=== PATIENT | female | born 1935 | race Caucasian/White ===

== ENCOUNTER 2019-07-12 10:46 | Emergency (ER) | payer MEDICAID, MEDICARE ==
[2019-07-12] MEDS ORDERED: Lactated Ringers 1,000 ML IV ONE (11:19)
--- NOTE | 2019-07-12 11:23 | EDM.PDOC ---
ED HPI GENERAL MEDICAL PROBLEM - General Chief Complaint: Genitourinary Problem Stated Complaint: MEDICAL VIA [facility] Time Seen by Provider: 07/12/19 11:05 Source of Information: Reports: Patient, RN Notes Reviewed, Other History Limitations: Reports: Physical Impairment - History of Present Illness INITIAL COMMENTS - FREE TEXT/NARRATIVE: 83-year-old female presents emergency department today via EMS services, she is a [facility] a [facility] local was [facility] from the [facility] after review of blood work revealed her potassium is now 2.7 this is down from 4.0, 3 weeks ago creatinine now 2.2 which was 0.8, 3 weeks ago, she is significantly demented therefore majority this history was taken from chart review and [facility] records - Related Data Allergies Allergy/AdvReac Type Severity Reaction Status Date / Time adhesive Allergy Rash Verified 07/12/19 10:58 latex Allergy Rash Verified 07/12/19 10:58 zoster vaccine live Allergy Cannot Verified 07/12/19 10:58 Remember lithium AdvReac Nausea and Verified 07/12/19 15:13 Vomiting Home Meds: Home Meds Acetaminophen 650 mg PO Q6H PRN 07/12/19 [History] Benzonatate 200 mg PO TID PRN 07/12/19 [History] Calcium Carbonate 1,000 mg PO TID PRN 07/12/19 [History] Cholecalciferol (Vitamin D3) [Vitamin D3] 2,000 unit PO DAILY 07/12/19 [History] Furosemide [Lasix] 10 mg PO DAILY 07/12/19 [History] Levothyroxine [Synthroid] 88 mcg PO ACBREAKFAST 07/12/19 [History] Melatonin 3 mg PO BEDTIME 07/12/19 [History] Multivitamin [Multi-Vitamin Daily] 1 each PO DAILY 07/12/19 [History] Mycophenolate [Myfortic] 720 mg PO BID 07/12/19 [History] Nystatin [Mycostatin] 500,000 unit PO QID 07/12/19 [History] OLANZapine [Olanzapine] 2.5 mg PO BEDTIME 07/12/19 [History] Rosuvastatin [Crestor] 20 mg PO DAILY 07/12/19 [History] amLODIPine [Norvasc] 5 mg PO DAILY 07/12/19 [History] cycloSPORINE, Modified [Cyclosporine Modified] 75 mg PO BID 07/12/19 [History] glipiZIDE [Glipizide Xl] 20 mg PO DAILY 07/12/19 [History] predniSONE [Prednisone] 4 mg PO DAILY 07/12/19 [History] Past Medical History Cardiovascular History: Reports: High Cholesterol, Hypertension Genitourinary History: Reports: Other (See Below) Endocrine/Metabolic History: Reports: Diabetes, Type II Social & Family History - Tobacco Use Smoking Status *Q: Former Smoker Used Tobacco, but Quit: Yes Month/Year Tobacco Last Used: 50 years - Caffeine Use Caffeine Use: Reports: None - Recreational Drug Use Recreational Drug Use: No ED ROS GENERAL - Review of Systems Review Of Systems: Unable To Obtain Reason Not Obtained: Dementia ED EXAM, RENAL/ - Physical Exam Exam: See Below Exam Limited By: Physical Impairment General Appearance: Alert, No Apparent Distress Respiratory/Chest: No Respiratory Distress, Lungs Clear, Normal Breath Sounds, No Accessory Muscle Use, Chest Non-Tender Cardiovascular: Regular Rate, Rhythm, No Murmur GI/Abdominal: Soft, Non-Tender Back Exam: No: CVA Tenderness (R), CVA Tenderness (L) Course - Vital Signs Last Recorded V/S: Last Vital Signs Temp 99.7 F 07/12/19 10:49 Pulse 93 07/12/19 15:10 Resp 20 07/12/19 10:49 BP 138/57 L 07/12/19 15:10 Pulse Ox 92 L 07/12/19 15:10 - Orders/Labs/Meds Orders: Active Orders 24 hr Category Date Time Status CULTURE URINE [RM] Urgent Lab 07/12/19 12:27 Received Potassium Chloride [Klor-Con M20] Med 07/12/19 15:39 Once 40 meq PO ONETIME ONE Labs: Laboratory Tests 07/12/19 07/12/19 07/12/19 Range/Units 11:33 11:33 11:33 WBC 11.0 (4.5-11.0) K/uL RBC 4.49 (3.30-5.50) M/uL Hgb 13.7 (12.0-15.0) g/dL Hct 42.2 (36.0-48.0) % MCV 94 (80-98) fL MCH 31 (27-31) pg MCHC 33 (32-36) % Plt Count 241 (150-400) K/uL Neut % (Auto) 83 H (36-66) % Lymph % (Auto) 11 L (24-44) % [place] % (Auto) 6 (2-6) % Eos % (Auto) 1 L (2-4) % Baso % (Auto) 0 (0-1) % PT (9.5-12.0) sec INR (0.80-1.20) APTT (27.0-36.0) sec Sodium (140-148) mmol/L Potassium (3.6-5.2) mmol/L Chloride (100-108) mmol/L Carbon Dioxide (21-32) mmol/L Anion Gap (5.0-14.0) mmol/L BUN (7-18) mg/dL Creatinine (0.6-1.0) mg/dL Est Cr Clr Drug Dosing mL/min Estimated GFR (MDRD) (>60) Glucose (74-106) mg/dL Lactic Acid 1.8 (0.4-2.0) mmol/L Calcium (8.5-10.1) mg/dL Phosphorus 3.6 (2.5-4.9) mg/dL Magnesium 1.4 L (1.8-2.4) mg/dL Total Bilirubin (0.2-1.0) mg/dL AST (15-37) U/L ALT (12-78) U/L Alkaline Phosphatase (46-116) U/L Total Protein (6.4-8.2) g/dL Albumin (3.4-5.0) g/dL Globulin (2.3-3.5) g/dL Albumin/Globulin Ratio (1.2-2.2) Urine Color (YELLOW) Urine Appearance (CLEAR) Urine pH (5.0-8.0) Ur Specific [place] (1.008-1.030) Urine Protein (NEGATIVE) mg/dL Urine Glucose (UA) (NEGATIVE) mg/dL Urine Ketones (NEGATIVE) mg/dL Urine Occult Blood (NEGATIVE) Urine Nitrite (NEGATIVE) Urine Bilirubin (NEGATIVE) Urine Urobilinogen (0.2-1.0) EU/dL Ur Leukocyte Esterase (NEGATIVE) Urine RBC (0-5) Urine WBC (0-5) Ur Epithelial Cells Amorphous Sediment Urine Bacteria Urine Mucus Urine Other 07/12/19 07/12/19 07/12/19 Range/Units 11:34 11:43 11:43 WBC (4.5-11.0) K/uL RBC (3.30-5.50) M/uL Hgb (12.0-15.0) g/dL Hct (36.0-48.0) % MCV (80-98) fL MCH (27-31) pg MCHC (32-36) % Plt Count (150-400) K/uL Neut % (Auto) (36-66) % Lymph % (Auto) (24-44) % [place] % (Auto) (2-6) % Eos % (Auto) (2-4) % Baso % (Auto) (0-1) % PT 11.9 (9.5-12.0) sec INR 1.11 (0.80-1.20) APTT 23.6 L (27.0-36.0) sec Sodium 137 L (140-148) mmol/L Potassium 2.7 L* (3.6-5.2) mmol/L Chloride 98 L (100-108) mmol/L Carbon Dioxide 27 (21-32) mmol/L Anion Gap 14.7 H (5.0-14.0) mmol/L BUN 39 H (7-18) mg/dL Creatinine 2.3 H (0.6-1.0) mg/dL Est Cr Clr Drug Dosing 14.40 mL/min Estimated GFR (MDRD) 20 L (>60) Glucose 216 H (74-106) mg/dL Lactic Acid (0.4-2.0) mmol/L Calcium 9.2 (8.5-10.1) mg/dL Phosphorus (2.5-4.9) mg/dL Magnesium (1.8-2.4) mg/dL Total Bilirubin 0.8 (0.2-1.0) mg/dL AST 51 H (15-37) U/L ALT 71 (12-78) U/L Alkaline Phosphatase 88 (46-116) U/L Total Protein 6.8 (6.4-8.2) g/dL Albumin 3.1 L (3.4-5.0) g/dL Globulin 3.7 H (2.3-3.5) g/dL Albumin/Globulin Ratio 0.8 L (1.2-2.2) Urine Color (YELLOW) Urine Appearance (CLEAR) Urine pH (5.0-8.0) Ur Specific [place] (1.008-1.030) Urine Protein (NEGATIVE) mg/dL Urine Glucose (UA) (NEGATIVE) mg/dL Urine Ketones (NEGATIVE) mg/dL Urine Occult Blood (NEGATIVE) Urine Nitrite (NEGATIVE) Urine Bilirubin (NEGATIVE) Urine Urobilinogen (0.2-1.0) EU/dL Ur Leukocyte Esterase (NEGATIVE) Urine RBC (0-5) Urine WBC (0-5) Ur Epithelial Cells Amorphous Sediment Urine Bacteria Urine Mucus Urine Other 07/12/19 Range/Units 13:01 WBC (4.5-11.0) K/uL RBC (3.30-5.50) M/uL Hgb (12.0-15.0) g/dL Hct (36.0-48.0) % MCV (80-98) fL MCH (27-31) pg MCHC (32-36) % Plt Count (150-400) K/uL Neut % (Auto) (36-66) % Lymph % (Auto) (24-44) % [place] % (Auto) (2-6) % Eos % (Auto) (2-4) % Baso % (Auto) (0-1) % PT (9.5-12.0) sec INR (0.80-1.20) APTT (27.0-36.0) sec Sodium (140-148) mmol/L Potassium (3.6-5.2) mmol/L Chloride (100-108) mmol/L Carbon Dioxide (21-32) mmol/L Anion Gap (5.0-14.0) mmol/L BUN (7-18) mg/dL Creatinine (0.6-1.0) mg/dL Est Cr Clr Drug Dosing mL/min Estimated GFR (MDRD) (>60) Glucose (74-106) mg/dL Lactic Acid (0.4-2.0) mmol/L Calcium (8.5-10.1) mg/dL Phosphorus (2.5-4.9) mg/dL Magnesium (1.8-2.4) mg/dL Total Bilirubin (0.2-1.0) mg/dL AST (15-37) U/L ALT (12-78) U/L Alkaline Phosphatase (46-116) U/L Total Protein (6.4-8.2) g/dL Albumin (3.4-5.0) g/dL Globulin (2.3-3.5) g/dL Albumin/Globulin Ratio (1.2-2.2) Urine Color Yellow (YELLOW) Urine Appearance Cloudy A (CLEAR) Urine pH 5.0 (5.0-8.0) Ur Specific [place] 1.020 (1.008-1.030) Urine Protein 100 H (NEGATIVE) mg/dL Urine Glucose (UA) Negative (NEGATIVE) mg/dL Urine Ketones Negative (NEGATIVE) mg/dL Urine Occult Blood Moderate H (NEGATIVE) Urine Nitrite Negative (NEGATIVE) Urine Bilirubin Negative (NEGATIVE) Urine Urobilinogen 1.0 (0.2-1.0) EU/dL Ur Leukocyte Esterase Trace H (NEGATIVE) Urine RBC 5-10 H (0-5) Urine WBC 20-30 H (0-5) Ur Epithelial Cells Few Amorphous Sediment Moderate Urine Bacteria Few Urine Mucus Not seen Urine Other See note Meds: Medications Discontinued Medications Generic Name Dose Route Start Last Admin Trade Name Kristie PRN Reason Stop Dose Admin Lactated Ringer's 1,000 mls @ 999 mls/hr 07/12/19 11:19 07/12/19 12:28 Ringers, Lactated IV 07/12/19 12:19 999 mls/hr BOLUS ONE Administration Ceftriaxone Sodium 1 gm/ 50 mls @ 100 mls/hr 07/12/19 14:57 07/12/19 15:29 Sodium Chloride IV 07/12/19 15:26 100 mls/hr ONETIME ONE Administration - Re-Assessments/Exams Free Text/Narrative Re-Assessment/Exam: 07/12/19 15:00 Called and discussed the case with Dr. [place] executive assistant to general counsel at [facility] at 1455, no known explanation for her acute renal failure possibly related to urinary tract infection possibly related to long-term placement of catheter at this time treatment antibiotics followed by close follow-up of electrolytes and kidney function thus far she has been given 1 L fluid and 20 mEq potassium replacement 07/12/19 15:01 Departure - Departure Time of Disposition: 15:45 Disposition: DC/Tfer to [place] [id number] Condition: Poor Clinical Impression: UTI, Urinary tract infectious disease Acute renal failure Qualifiers: Acute renal failure type: unspecified Qualified Code(s): N17.9 - Acute kidney failure, unspecified - Discharge Information Referrals: Avery Lares MD [Primary Care Provider] - Forms: ED Department Discharge Additional Instructions: Recheck basic metabolic panel in the morning, may need further evaluation, antibiotics cefdinir 300 mg twice a day for 3 days start tomorrow Sepsis Event Note - Evaluation Sepsis Screening Result: No Definite Risk - Focused Exam Vital Signs: Vital Signs Temp Pulse Resp BP Pulse Ox 07/12/19 15:10 93 138/57 L 92 L 07/12/19 13:46 80 121/57 L 92 L 07/12/19 12:46 74 117/57 L 94 L 07/12/19 10:49 99.7 F 58 L 20 103/41 L 95 Date Exam was Performed: 07/12/19 Time Exam was Performed: 15:40 - My Orders Last 24 Hours: My Active Orders 07/12/19 12:27 CULTURE URINE [RM] Urgent 07/12/19 15:39 Potassium Chloride [Klor-Con M20] 40 meq PO ONETIME ONE - Assessment/Plan Last 24 Hours: My Active Orders 07/12/19 12:27 CULTURE URINE [RM] Urgent 07/12/19 15:39 Potassium Chloride [Klor-Con M20] 40 meq PO ONETIME ONE Plan: Assessment Acuity = acute Site and laterality = urinary tract infection with dehydration complicated the patient with known history of renal transplant on immunosuppressants producing an acute renal failure Etiology = unknown possibly urinary tract infection Manifestations = acute renal failure Location of injury = Home Lab values = CBC unremarkable potassium low at 2.7 consistent hypokalemia, creatinine elevated 2.3 consistent with acute renal failure stage G5, blood sugar elevated 216 consistent with hyperglycemia magnesium low at 1.4 consistent with hypomagnesemia albumin low at 3.1 consistent with hypoalbuminemia, urinalysis WBC 20-30 consistent with pyuria cultures pending Plan She is given 1 g Rocephin IV as well as replacement of 40 mEq potassium and 1 L fluids, she will be discharged home recheck a BMP in the morning for further monitoring antibiotics of cefdinir 300 mg p.o. twice daily x3 days This note was dictated using [employer] voice recognition software please call with any questions on syntax or grammar.
[2019-07-12] MEDS ORDERED: cefTRIAXone 1 GM in Sodium Chloride 0.9% 50 ML IV ONE (14:57)
[2019-07-12] MEDS ORDERED: Potassium Chloride 20 MEQ Tab.ER PO ONE (15:39)
== END 2019-07-12 16:16 ==
LOC: JP.ED 10:46
DX: N17.9 Acute kidney failure, unspecified (principal); N39.0 Urinary tract infection, site not specified; E86.0 Dehydration; Z91.040 Latex allergy status; Z91.09 Other allergy status, other than to drugs and biological substances; Z88.7 Allergy status to serum and vaccine; Z79.899 Other long term (current) drug therapy; Z87.891 Personal history of nicotine dependence; E11.9 Type 2 diabetes mellitus without complications; Z79.84 Long term (current) use of oral hypoglycemic drugs
CPT/HCPCS: 36415; 80053; 81001; 83605; 83735; 84100; 85025; 85610; 85730; 87086; 96361; 96365; 99285; A9270; J0696; J7050; J7120; 87088; 87186

== ENCOUNTER 2019-11-22 00:01 | Inpatient (IN) | payer MEDICARE ==
[2019-11-22] MEDS ORDERED: Acetaminophen Soln 650 MG/20.3 ML UD Cup PO ONE (00:05)
[2019-11-22] MEDS ORDERED: Sodium Chloride 0.9% 1,000 ML IV SCH ×3 (00:15→01:45)
--- NOTE | 2019-11-22 00:33 | EDM.PDOC ---
ED HPI GENERAL MEDICAL PROBLEM - General Chief Complaint: Fever Stated Complaint: MEDICAL VIA [facility] Time Seen by Provider: 11/22/19 00:29 Source of Information: Reports: Patient History Limitations: Reports: No Limitations - History of Present Illness INITIAL COMMENTS - FREE TEXT/NARRATIVE: t fell last nite and she had a temp this am. She had tylenol for the temp this am. She has been very shakey this pm. She was found to have a temp of 104 on arrival. Onset: Other (pt did fall last nite. ) Duration: Hour(s): Location: Reports: Generalized, Other (pt has generalized shaking. ) Associated Symptoms: Reports: Confusion, Fever/Chills, Weakness Headache Pain Score (Numeric/FACES): 0 - Related Data Allergies Allergy/AdvReac Type Severity Reaction Status Date / Time adhesive Allergy Rash Verified 11/22/19 00:25 latex Allergy Rash Verified 11/22/19 00:25 zoster vaccine live Allergy Cannot Verified 11/22/19 00:25 Remember lithium AdvReac Nausea and Verified 11/22/19 00:25 Vomiting Home Meds: Home Meds Acetaminophen 650 mg PO Q6H PRN 07/12/19 [History] Benzonatate 200 mg PO TID PRN 07/12/19 [History] Calcium Carbonate 1,000 mg PO TID PRN 07/12/19 [History] Cholecalciferol (Vitamin D3) [Vitamin D3] 2,000 unit PO DAILY 07/12/19 [History] Furosemide [Lasix] 10 mg PO DAILY 07/12/19 [History] Levothyroxine [Synthroid] 88 mcg PO ACBREAKFAST 07/12/19 [History] Multivitamin [Multi-Vitamin Daily] 1 each PO DAILY 07/12/19 [History] Mycophenolate [Myfortic] 720 mg PO BID 07/12/19 [History] OLANZapine [Olanzapine] 5 mg PO BEDTIME 07/12/19 [History] Rosuvastatin [Crestor] 20 mg PO DAILY 07/12/19 [History] cycloSPORINE, Modified [Cyclosporine Modified] 75 mg PO DAILY 07/12/19 [History] predniSONE [Prednisone] 4 mg PO DAILY 07/12/19 [History] Calcium Carbonate [Calcium] 2 tab PO DAILY 11/22/19 [History] Potassium Chloride [Klor-Con] 1 dose PO BID 11/22/19 [History] Propylene Glycol/PEG 400/Pf [Systane Ultra 0.4-0.3% Eye Drp] 1 drop EYEBOTH QID 11/22/19 [History] Saliva Substitute Combo No.9 [Biotene] 1 dose PO ASDIRECTED PRN 11/22/19 [ History] cycloSPORINE [Cyclosporine] 50 mg PO DAILY 11/22/19 [History] polyethylene glycoL 3350 [Miralax] 1 dose PO ASDIRECTED PRN 11/22/19 [History] Ciprofloxacin HCl 250 mg PO BID #9 tablet 11/24/19 [Rx] Past Medical History HEENT History: Reports: Cataract, Hard of Hearing Cardiovascular History: Reports: High Cholesterol, Hypertension Respiratory History: Reports: Other (See Below) Other Respiratory History: history of acute respiratory faliure Gastrointestinal History: Reports: Cholelithiasis, Diverticulosis, Other (See Below) Other Gastrointestinal History: abd hernia Genitourinary History: Reports: Other (See Below) [employer]ORS History: Reports: Neurological History: Reports: Alzheimers Disease Psychiatric History: Reports: Bipolar Endocrine/Metabolic History: Reports: Diabetes, Type II Oncologic (Cancer) History: Reports: Basal Cell Carcinoma, Squamous Cell Carcinoma Dermatologic History: Reports: Other (See Below) Other Dermatologic History: actinic keratosis. 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 bone graft right leg Oncologic Surgical History: Reports: Biopsy of Breast Dermatological Surgical History: Reports: Skin Biopsy Social & Family History - Caffeine Use Caffeine Use: Reports: None ED ROS GENERAL - Review of Systems Review Of Systems: See Below Constitutional: Reports: Fever, Chills, Malaise, Weakness, Diaphoresis HEENT: Reports: No Symptoms Respiratory: Reports: No Symptoms Cardiovascular: Reports: No Symptoms Endocrine: Reports: No Symptoms GI/Abdominal: Reports: No Symptoms : Reports: No Symptoms Musculoskeletal: Reports: No Symptoms Skin: Reports: No Symptoms Neurological: Reports: Confusion Psychiatric: Reports: Anxiety ED EXAM, GENERAL - Physical Exam Exam: See Below Free Text/Narrative:: pt arrived with shaking chills and a temp of 104. She had a fever this am. and had tylenol. Exam Limited By: No Limitations General Appearance: Alert, Anxious Ears: Normal TMs Nose: Normal Inspection Throat/Mouth: Other (mouth appears very dry. ) Head: Atraumatic Neck: Normal Inspection Respiratory/Chest: No Respiratory Distress Cardiovascular: Regular Rate, Rhythm, Tachycardia, Other ( temp was 104. ) GI/Abdominal: Soft, Non-Tender (Female) Exam: Deferred Rectal (Female) Exam: Deferred Back Exam: Normal Inspection Extremities: Other (pt fell last nite and landed on her rt side. She had a skin tear on the rt arm. She was mildly tender on the rt hip but the hip can be freely moved. ) Neurological: Alert, Confused, Other (pt does have a history of dementia. ) Psychiatric: Anxious Course - Vital Signs Last Recorded V/S: Last Vital Signs Temp 35.6 C L 11/24/19 07:00 Pulse 47 L 11/24/19 07:00 Resp 18 11/24/19 07:00 BP 137/57 L 11/24/19 07:00 Pulse Ox 95 11/24/19 09:00 - Orders/Labs/Meds Labs: Laboratory Tests 11/22/19 11/22/19 11/22/19 Range/Units 00:01 00:01 00:01 WBC 8.5 (4.5-11.0) K/uL RBC 4.05 (3.30-5.50) M/uL Hgb 12.6 D (12.0-15.0) g/dL Hct 41.1 (36.0-48.0) % MCV 102 H (80-98) fL MCH 31 (27-31) pg MCHC 31 L (32-36) % Plt Count 204 (150-400) K/uL Neut % (Auto) 75 H (36-66) % Lymph % (Auto) 15 L (24-44) % [place] % (Auto) 9 H (2-6) % Eos % (Auto) 1 L (2-4) % Baso % (Auto) 0 (0-1) % Sodium 138 L (140-148) mmol/L Potassium 4.7 (3.6-5.2) mmol/L Chloride 101 (100-108) mmol/L Carbon Dioxide 27 (21-32) mmol/L Anion Gap 14.7 H (5.0-14.0) mmol/L BUN 26 H (7-18) mg/dL Creatinine 1.3 H (0.6-1.0) mg/dL Est Cr Clr Drug Dosing 27.32 mL/min Estimated GFR (MDRD) 39 L (>60) Glucose 120 H (74-106) mg/dL Lactic Acid 2.2 H (0.4-2.0) mmol/L Calcium 9.2 (8.5-10.1) mg/dL Total Bilirubin 0.7 (0.2-1.0) mg/dL AST 15 (15-37) U/L ALT 17 D (12-78) U/L Alkaline Phosphatase 56 (46-116) U/L Total Protein 7.1 (6.4-8.2) g/dL Albumin 3.2 L (3.4-5.0) g/dL Globulin 3.9 H (2.3-3.5) g/dL Albumin/Globulin Ratio 0.8 L (1.2-2.2) Urine Color (YELLOW) Urine Appearance (CLEAR) Urine pH (5.0-8.0) Ur Specific [place] (1.008-1.030) Urine Protein (NEGATIVE) mg/dL Urine Glucose (UA) (NEGATIVE) mg/dL Urine Ketones (NEGATIVE) mg/dL Urine Occult Blood (NEGATIVE) Urine Nitrite (NEGATIVE) Urine Bilirubin (NEGATIVE) Urine Urobilinogen (0.2-1.0) EU/dL Ur Leukocyte Esterase (NEGATIVE) Urine RBC (0-5) Urine WBC (0-5) Ur Epithelial Cells Amorphous Sediment Urine Bacteria Urine Mucus 11/22/19 Range/Units 00:03 WBC (4.5-11.0) K/uL RBC (3.30-5.50) M/uL Hgb (12.0-15.0) g/dL Hct (36.0-48.0) % MCV (80-98) fL MCH (27-31) pg MCHC (32-36) % Plt Count (150-400) K/uL Neut % (Auto) (36-66) % Lymph % (Auto) (24-44) % [place] % (Auto) (2-6) % Eos % (Auto) (2-4) % Baso % (Auto) (0-1) % Sodium (140-148) mmol/L Potassium (3.6-5.2) mmol/L Chloride (100-108) mmol/L Carbon Dioxide (21-32) mmol/L Anion Gap (5.0-14.0) mmol/L BUN (7-18) mg/dL Creatinine (0.6-1.0) mg/dL Est Cr Clr Drug Dosing mL/min Estimated GFR (MDRD) (>60) Glucose (74-106) mg/dL Lactic Acid (0.4-2.0) mmol/L Calcium (8.5-10.1) mg/dL Total Bilirubin (0.2-1.0) mg/dL AST (15-37) U/L ALT (12-78) U/L Alkaline Phosphatase (46-116) U/L Total Protein (6.4-8.2) g/dL Albumin (3.4-5.0) g/dL Globulin (2.3-3.5) g/dL Albumin/Globulin Ratio (1.2-2.2) Urine Color Yellow (YELLOW) Urine Appearance Clear (CLEAR) Urine pH 6.0 (5.0-8.0) Ur Specific [place] 1.025 (1.008-1.030) Urine Protein Negative (NEGATIVE) mg/dL Urine Glucose (UA) Negative (NEGATIVE) mg/dL Urine Ketones Negative (NEGATIVE) mg/dL Urine Occult Blood Moderate H (NEGATIVE) Urine Nitrite Positive H (NEGATIVE) Urine Bilirubin Negative (NEGATIVE) Urine Urobilinogen 0.2 (0.2-1.0) EU/dL Ur Leukocyte Esterase Negative (NEGATIVE) Urine RBC 5-10 H (0-5) Urine WBC 0-5 (0-5) Ur Epithelial Cells Few Amorphous Sediment Not seen Urine Bacteria Moderate Urine Mucus Not seen Meds: Medications Discontinued Medications Generic Name Dose Route Start Last Admin Trade Name Freq PRN Reason Stop Dose Admin Acetaminophen 650 mg 11/22/19 00:05 11/22/19 00:17 Tylenol PO 11/22/19 00:06 650 mg ONETIME ONE Administration Acetaminophen 650 mg 11/22/19 01:42 11/24/19 05:19 Tylenol PO 650 mg Q4H PRN Administration Pain (Mild 1-3)/fever Ciprofloxacin 250 mg 11/24/19 09:00 11/24/19 10:01 Ciprofloxacin Hcl PO 250 mg BIDAC AKIL Administration Cyclosporine (Modified) 50 mg 11/22/19 09:00 11/22/19 08:17 Neoral PO 50 mg DAILY AKIL Administration Cyclosporine (Modified) 75 mg 11/23/19 09:00 11/24/19 08:41 Neoral PO 75 mg DAILY AKIL Administration Cyclosporine (Modified) 50 mg 11/22/19 21:00 11/23/19 20:17 Neoral PO 50 mg BEDTIME AKIL Administration Enoxaparin Sodium 40 mg 11/22/19 01:45 11/22/19 02:54 Lovenox SUBCUT 40 mg DAILY AKIL Administration Enoxaparin Sodium 40 mg 11/22/19 21:00 11/23/19 20:16 Lovenox SUBCUT 40 mg BEDTIME AKIL Administration Furosemide 20 mg 11/22/19 01:54 Lasix PO ONETIME PRN Edema Sodium Chloride 1,000 mls @ 999 mls/hr 11/22/19 00:15 11/22/19 00:17 Normal Saline IV 999 mls/hr ASDIRECTED AKIL Administration Ceftriaxone Sodium 1 gm/ 50 mls @ 100 mls/hr 11/22/19 01:16 11/22/19 01:23 Sodium Chloride IV 11/22/19 01:45 100 mls/hr ONETIME ONE Administration Sodium Chloride 1,000 mls @ 999 mls/hr 11/22/19 01:30 11/22/19 01:24 Normal Saline IV 999 mls/hr ASDIRECTED AKIL Administration Sodium Chloride 1,000 mls @ 999 mls/hr 11/22/19 01:45 11/22/19 02:59 Normal Saline IV 999 mls/hr ASDIRECTED AKIL Administration Promethazine HCl 6.25 mg/ 50.25 mls @ 200 mls/hr 11/22/19 01:42 Sodium Chloride IV Q6H PRN Nausea/Vomiting Ceftriaxone Sodium 1 gm/ 50 mls @ 100 mls/hr 11/23/19 01:00 11/24/19 01:29 Sodium Chloride IV 100 mls/hr Q24H AKIL Administration Lactobacillus Rhamnosus 1 cap 11/22/19 21:00 11/24/19 08:41 Culturelle PO 1 cap BID AKIL Administration Levothyroxine Sodium 88 mcg 11/22/19 07:30 11/24/19 07:44 Synthroid PO 88 mcg ACBREAKFAST AKIL Administration Magnesium Hydroxide 30 ml 11/22/19 12:40 11/23/19 09:50 Milk Of Magnesia PO 30 ml BID PRN Administration Constipation Melatonin 9 mg 11/22/19 21:00 11/23/19 20:16 Melatonin PO 9 mg BEDTIME AKIL Administration Methylprednisolone Sodium Succinate 40 mg 11/22/19 00:35 11/22/19 01:15 Solu-Medrol IVPUSH 11/22/19 00:36 40 mg ONETIME ONE Administration Mycophenolate Mofetil 500 mg 11/22/19 09:00 11/24/19 08:41 Cellcept PO 500 mg BID AKIL Administration Olanzapine 5 mg 11/22/19 01:56 11/23/19 20:17 Zyprexa PO 5 mg BEDTIME AKIL Administration Ondansetron HCl 4 mg 11/22/19 01:42 Zofran Odt PO Q6H PRN Nausea able to take PO Oxycodone HCl 5 mg 11/22/19 01:42 11/22/19 02:56 Oxycodone PO 5 mg Q4H PRN Administration Pain (moderate 4-6) Prednisone 5 mg 11/22/19 10:00 11/24/19 08:41 Prednisone PO 5 mg WITHBREAKFAST AKIL Administration Rosuvastatin Calcium 10 mg 11/22/19 07:00 11/24/19 08:41 Crestor PO 10 mg DAILY AKIL Administration - Re-Assessments/Exams Free Text/Narrative Re-Assessment/Exam: 11/22/19 01:21 pt had a temp of 104. She has a normal wbc. She has a mildly elevated lactic acid indicating probable early sepsis. She had a urine with a positive nitrite and alot of bacteria. pt was given tylenol for her temp. rocephen 1 gm was given iv. culture on the urine was obtained and she had blood cultures drawn. Departure - Departure Time of Disposition: 01:25 Disposition: Admitted As Inpatient 65 Condition: Fair Clinical Impression: Dehydration Sepsis Qualifiers: Sepsis type: Pseudomonas Sepsis acute organ dysfunction status: without acute organ dysfunction Qualified Code(s): A41.52 - Sepsis due to Pseudomonas UTI (urinary tract infection) Qualifiers: Urinary tract infection type: acute cystitis Hematuria presence: with hematuria Qualified Code(s): N30.01 - Acute cystitis with hematuria - Discharge Information Sepsis Event Note - Focused Exam Date Exam was Performed: 11/24/19 Time Exam was Performed: 18:12
[2019-11-22] MEDS ORDERED: methylPREDNISolone Sodium Succinate 40 MG/1 ML SDV IVPUSH ONE (00:35)
[2019-11-22] MEDS ORDERED: cefTRIAXone 1 GM in Sodium Chloride 0.9% 50 ML IV ONE (01:16)
[2019-11-22] MEDS ORDERED: oxyCODONE 5 MG Tab PO PRN (01:42)
[2019-11-22] MEDS ORDERED: Promethazine 6.25 MG in Sodium Chloride 0.9% 50 ML IV PRN (01:42)
[2019-11-22] MEDS ORDERED: Ondansetron 4 MG Tab.DIS PO PRN (01:42)
[2019-11-22] MEDS ORDERED: Enoxaparin 40 MG/0.4 ML Syringe SUBCUT SCH (01:45)
[2019-11-22] MEDS ORDERED: Furosemide 20 MG Tab PO PRN (01:54)
--- NOTE | 2019-11-22 02:16 | PCM.HP.2 ---
H&P History of Present Illness - General Date of Service: 11/22/19 Admit Problem/Dx: Admission Diagnosis/Problem Admission Diagnosis/Problem Sepsis Source of Information: EMS, Half-Way Records History Limitations: Reports: Altered Mental Status - History of Present Illness Initial Comments - Free Text/Narative: Patient is an 84yo female with PMH of renal transplant and Bipolar disorder with delirium who was brought by EMS from [facility] when found to be confused this evening. Upon arrival in the ER she had a temp of 104. She is having confusion in the ER as she is saying her arm is plastic and shouldn't be used for blood draws or BP because it's plastic. She also says she doesn't need to be admitted because she isn't and isn't going to deliver. Says she has a guardian named Aziza Kaur who needs to be notified but does not have a number. Patient tells nursing that if her feet touch the ground they will turn to apple sauce. Onset of Symptoms: Reports: Today Duration of Symptoms: Reports: Hour(s): - Related Data Allergies/Adverse Reactions: Allergies Allergy/AdvReac Type Severity Reaction Status Date / Time adhesive Allergy Rash Verified 11/22/19 00:25 latex Allergy Rash Verified 11/22/19 00:25 zoster vaccine live Allergy Cannot Verified 11/22/19 00:25 Remember lithium AdvReac Nausea and Verified 11/22/19 00:25 Vomiting Home Medications: Home Meds Acetaminophen 650 mg PO Q6H PRN 07/12/19 [History] Benzonatate 200 mg PO TID PRN 07/12/19 [History] Calcium Carbonate 1,000 mg PO TID PRN 07/12/19 [History] Cholecalciferol (Vitamin D3) [Vitamin D3] 2,000 unit PO DAILY 07/12/19 [History] Furosemide [Lasix] 10 mg PO DAILY 07/12/19 [History] Levothyroxine [Synthroid] 88 mcg PO ACBREAKFAST 07/12/19 [History] Multivitamin [Multi-Vitamin Daily] 1 each PO DAILY 07/12/19 [History] Mycophenolate [Myfortic] 720 mg PO BID 07/12/19 [History] OLANZapine [Olanzapine] 5 mg PO BEDTIME 07/12/19 [History] Rosuvastatin [Crestor] 20 mg PO DAILY 07/12/19 [History] cycloSPORINE, Modified [Cyclosporine Modified] 75 mg PO DAILY 07/12/19 [History] predniSONE [Prednisone] 4 mg PO DAILY 07/12/19 [History] Calcium Carbonate [Calcium] 2 tab PO DAILY 11/22/19 [History] Polyethylene Glycol 3350 [Miralax] 1 dose PO ASDIRECTED PRN 11/22/19 [History] Potassium Chloride [Klor-Con] 1 dose PO BID 11/22/19 [History] Propylene Glycol/PEG 400/Pf [Systane Ultra 0.4-0.3% Eye Drp] 1 drop EYEBOTH QID 11/22/19 [History] Saliva Substitute Combo No.9 [Biotene] 1 dose PO ASDIRECTED PRN 11/22/19 [ History] cycloSPORINE [Cyclosporine] 50 mg PO DAILY 11/22/19 [History] Past Medical History HEENT History: Reports: Cataract, Hard of Hearing Cardiovascular History: Reports: High Cholesterol, Hypertension Respiratory History: Reports: Other (See Below) Other Respiratory History: history of acute respiratory faliure Gastrointestinal History: Reports: Cholelithiasis, Diverticulosis, Other (See Below) Other Gastrointestinal History: abd hernia Genitourinary History: Reports: Other (See Below) MANAGER PHP History: Reports: Neurological History: Reports: Alzheimers Disease Psychiatric History: Reports: Bipolar Endocrine/Metabolic History: Reports: Diabetes, Type II Oncologic (Cancer) History: Reports: Basal Cell Carcinoma, Squamous Cell Carcinoma Dermatologic History: Reports: Other (See Below) Other Dermatologic History: actinic keratosis. 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 bone graft right leg Oncologic Surgical History: Reports: Biopsy of Breast Dermatological Surgical History: Reports: Skin Biopsy Social & Family History - Tobacco Use Smoking Status *Q: Never Smoker - Caffeine Use Caffeine Use: Reports: None - Recreational Drug Use Recreational Drug Use: No - Living Situation & Occupation Living situation: Reports: Extended Care Facility, Assisted Living H&P Review of Systems - Review of Systems: Review Of Systems: Unable To Obtain Reason Not Obtained: confusion Free Text/Narrative: endorses back pain Exam - Exam Exam: See Below - Vital Signs Vital Signs: Last Vital Signs Temp 39.3 C H 11/22/19 01:11 Pulse 90 11/22/19 01:37 Resp 26 H 11/22/19 01:37 BP 142/45 H 11/22/19 01:37 Pulse Ox 91 L 11/22/19 01:37 Weight: 60.781 kg - Exam General: Alert. No: Oriented HEENT: PERRLA, Hearing Intact, Mucosa Moist & [place], Nares Patent, Normal Nasal Septum, Posterior Pharynx Clear, Conjunctiva Clear, EOMI, EACs Clear, TMs Clear Neck: Supple, Trachea Midline, 2 Lungs: Clear to Auscultation, Normal Respiratory Effort Cardiovascular: Regular Rate, Regular Rhythm, Systolic Murmur GI/Abdominal Exam: Normal Bowel Sounds, Soft, Non-Tender, No Organomegaly, No Distention, No Abnormal Bruit, No Mass, Pelvis Stable (Female) Exam: Deferred Rectal (Female) Exam: Deferred Back Exam: Normal Inspection, Full Range of Motion, NT Extremities: Normal Inspection, Normal Range of Motion, Non-Tender, No Pedal Edema, Normal Capillary Refill Skin: Warm, Dry, Intact Neurological: Cranial Nerves Intact, Reflexes Equal Bilateral Neuro Extensive - Mental Status: Alert. No: Oriented x3, Normal Cognition Neuro Extensive - Motor, Sensory, Reflexes: CN II-XII Intact, Normal Gait, Normal Reflexes Psychiatric: Alert, Normal Affect, Normal Mood - Patient Data Lab Results Last 24 hrs: Laboratory Results - last 24 hr 11/22/19 11/22/19 11/22/19 Range/Units 00:01 00:01 00:01 WBC 8.5 (4.5-11.0) K/uL RBC 4.05 (3.30-5.50) M/uL Hgb 12.6 D (12.0-15.0) g/dL Hct 41.1 (36.0-48.0) % MCV 102 H (80-98) fL MCH 31 (27-31) pg MCHC 31 L (32-36) % Plt Count 204 (150-400) K/uL Neut % (Auto) 75 H (36-66) % Lymph % (Auto) 15 L (24-44) % [place] % (Auto) 9 H (2-6) % Eos % (Auto) 1 L (2-4) % Baso % (Auto) 0 (0-1) % Sodium 138 L (140-148) mmol/L Potassium 4.7 (3.6-5.2) mmol/L Chloride 101 (100-108) mmol/L Carbon Dioxide 27 (21-32) mmol/L Anion Gap 14.7 H (5.0-14.0) mmol/L BUN 26 H (7-18) mg/dL Creatinine 1.3 H (0.6-1.0) mg/dL Est Cr Clr Drug Dosing 27.32 mL/min Estimated GFR (MDRD) 39 L (>60) Glucose 120 H (74-106) mg/dL Lactic Acid 2.2 H (0.4-2.0) mmol/L Calcium 9.2 (8.5-10.1) mg/dL Total Bilirubin 0.7 (0.2-1.0) mg/dL AST 15 (15-37) U/L ALT 17 D (12-78) U/L Alkaline Phosphatase 56 (46-116) U/L Total Protein 7.1 (6.4-8.2) g/dL Albumin 3.2 L (3.4-5.0) g/dL Globulin 3.9 H (2.3-3.5) g/dL Albumin/Globulin Ratio 0.8 L (1.2-2.2) Urine Color (YELLOW) Urine Appearance (CLEAR) Urine pH (5.0-8.0) Ur Specific [place] (1.008-1.030) Urine Protein (NEGATIVE) mg/dL Urine Glucose (UA) (NEGATIVE) mg/dL Urine Ketones (NEGATIVE) mg/dL Urine Occult Blood (NEGATIVE) Urine Nitrite (NEGATIVE) Urine Bilirubin (NEGATIVE) Urine Urobilinogen (0.2-1.0) EU/dL Ur Leukocyte Esterase (NEGATIVE) Urine RBC (0-5) Urine WBC (0-5) Ur Epithelial Cells Amorphous Sediment Urine Bacteria Urine Mucus 11/22/19 Range/Units 00:03 WBC (4.5-11.0) K/uL RBC (3.30-5.50) M/uL Hgb (12.0-15.0) g/dL Hct (36.0-48.0) % MCV (80-98) fL MCH (27-31) pg MCHC (32-36) % Plt Count (150-400) K/uL Neut % (Auto) (36-66) % Lymph % (Auto) (24-44) % [place] % (Auto) (2-6) % Eos % (Auto) (2-4) % Baso % (Auto) (0-1) % Sodium (140-148) mmol/L Potassium (3.6-5.2) mmol/L Chloride (100-108) mmol/L Carbon Dioxide (21-32) mmol/L Anion Gap (5.0-14.0) mmol/L BUN (7-18) mg/dL Creatinine (0.6-1.0) mg/dL Est Cr Clr Drug Dosing mL/min Estimated GFR (MDRD) (>60) Glucose (74-106) mg/dL Lactic Acid (0.4-2.0) mmol/L Calcium (8.5-10.1) mg/dL Total Bilirubin (0.2-1.0) mg/dL AST (15-37) U/L ALT (12-78) U/L Alkaline Phosphatase (46-116) U/L Total Protein (6.4-8.2) g/dL Albumin (3.4-5.0) g/dL Globulin (2.3-3.5) g/dL Albumin/Globulin Ratio (1.2-2.2) Urine Color Yellow (YELLOW) Urine Appearance Clear (CLEAR) Urine pH 6.0 (5.0-8.0) Ur Specific [place] 1.025 (1.008-1.030) Urine Protein Negative (NEGATIVE) mg/dL Urine Glucose (UA) Negative (NEGATIVE) mg/dL Urine Ketones Negative (NEGATIVE) mg/dL Urine Occult Blood Moderate H (NEGATIVE) Urine Nitrite Positive H (NEGATIVE) Urine Bilirubin Negative (NEGATIVE) Urine Urobilinogen 0.2 (0.2-1.0) EU/dL Ur Leukocyte Esterase Negative (NEGATIVE) Urine RBC 5-10 H (0-5) Urine WBC 0-5 (0-5) Ur Epithelial Cells Few Amorphous Sediment Not seen Urine Bacteria Moderate Urine Mucus Not seen Result Diagrams: 11/22/19 00:01 11/22/19 00:01 Sepsis Event Note - Evaluation Sepsis Screening Result: No Definite Risk Current Stage of Sepsis: Sepsis Possible Source of Sepsis: Genitourinary - Focused Exam Sepsis Event Note Statement: Focused Sepsis Exam Completed Vital Signs: Vital Signs Temp Pulse Resp BP Pulse Ox 11/22/19 01:37 90 26 H 142/45 H 91 L 11/22/19 01:11 39.3 C H 11/22/19 00:59 40.0 C H 87 16 155/64 H 90 L 11/22/19 00:16 40.0 C H 87 16 155/64 H 90 L Heart Sounds: Murmur, Systolic (known murmur) Capillary Refill, Detail: Less than/Equal to (</=) 2 Seconds Skin Exam (Focused Sepsis): Normal Turgor Date Exam was Performed: 11/22/19 Time Exam was Performed: 02:26 - Problem List (1) Sepsis SNOMED Code(s): 34608702 ICD Code: A41.9 - SEPSIS, UNSPECIFIED ORGANISM Status: Acute Current Visit: Yes Onset Date: ~11/21/19 Problem Details: POA, Patient receiving fluids and rocephin in ER, sepsis protocol started, lovenox started, patient will be sent to ICU for closer monitoring. Qualifiers: Sepsis type: sepsis due to unspecified organism Sepsis acute organ dysfunction status: without acute organ dysfunction Qualified Code(s): A41.9 - Sepsis, unspecified organism (2) UTI (urinary tract infection) SNOMED Code(s): 91202115 ICD Code: N39.0 - URINARY TRACT INFECTION, SITE NOT SPECIFIED Status: Acute Current Visit: Yes Problem Details: POA, patient given rocephin and fluids in ER will send to ICU for close monitoring given patient's age and confusion from presumed spesis Qualifiers: Urinary tract infection type: acute cystitis Hematuria presence: with hematuria Qualified Code(s): N30.01 - Acute cystitis with hematuria (3) Kidney transplant recipient SNOMED Code(s): 518879640 ICD Code: Z94.0 - KIDNEY TRANSPLANT STATUS Status: Acute Current Visit: Yes Onset Date: Unknown Problem Details: Will hold prednisone due to sepsis and infection will order cyclosporin (4) Dehydration SNOMED Code(s): 72397916 ICD Code: E86.0 - DEHYDRATION Status: Acute Current Visit: Yes Problem Details: will continue aggressive fluid replacement d/t presumed sepsis from UTI Problem List Initiated/Reviewed/Updated: Yes Orders Last 24hrs: Active Orders 24 hr Category Date Time Status Patient Status Manage Transfer [TRANSFER] Routine ADT 11/22/19 02:00 Active Patient Status [ADT] Routine ADT 11/22/19 01:42 Active Antiembolic Devices [RC] .Routine Care 11/22/19 01:42 Active Oxygen Therapy [RC] PRN Care 11/22/19 01:42 Active VTE/DVT Education [RC] Per Unit Routine Care 11/22/19 01:42 Active Vital Signs [RC] Q4H Care 11/22/19 01:42 Active Chest 1V Frontal [CR] Stat Exams 11/22/19 00:04 Taken CBC WITH AUTO DIFF [HEME] Routine Lab 11/22/19 07:00 Ordered COMPREHENSIVE METABOLIC PN,CMP [CHEM] Routine Lab 11/22/19 07:00 Ordered CULTURE BLOOD [BC] Urgent Lab 11/22/19 00:30 Received CULTURE BLOOD [BC] Urgent Lab 11/22/19 00:35 Received CULTURE URINE [RM] Stat Lab 11/22/19 00:03 Received LACTATE SEPSIS W/ REFLEX [CHEM] Routine Lab 11/22/19 02:00 Ordered Acetaminophen [Tylenol] Med 11/22/19 01:42 Active 650 mg PO Q4H PRN Enoxaparin [Lovenox] Med 11/22/19 01:45 Active 40 mg SUBCUT DAILY Furosemide [Lasix] Med 11/22/19 01:54 Active 20 mg PO ONETIME PRN Levothyroxine [Synthroid] Med 11/22/19 07:30 Active 88 mcg PO ACBREAKFAST OLANZapine [ZyPREXA] Med 11/22/19 01:56 Active 5 mg PO BEDTIME Ondansetron [Zofran ODT] Med 11/22/19 01:42 Active 4 mg PO Q6H PRN Promethazine [Phenergan] 6.25 mg Med 11/22/19 01:42 Active Sodium Chloride 0.9% [Normal Saline] 50 ml IV Q6H Rosuvastatin [Crestor] Med 11/22/19 07:00 Active 10 mg PO DAILY Sodium Chloride 0.9% [Normal Saline] 1,000 ml Med 11/22/19 00:15 Active IV ASDIRECTED Sodium Chloride 0.9% [Normal Saline] 1,000 ml Med 11/22/19 01:30 Active IV ASDIRECTED Sodium Chloride 0.9% [Normal Saline] 1,000 ml Med 11/22/19 01:45 Active IV ASDIRECTED cycloSPORINE, Modified [Neoral] Med 11/22/19 09:00 Active 50 mg PO DAILY mycophenolate mofetiL [Cellcept] Med 11/22/19 09:00 Active 500 mg PO BID oxyCODONE Med 11/22/19 01:42 Active 5 mg PO Q4H PRN Blood Culture x2 Reflex Set [OM.PC] Urgent Oth 11/22/19 00:03 Ordered Foot Pump [OM.PC] Per Unit Routine Oth 11/22/19 01:45 Ordered Sequential Compression Device [OM.PC] Per Unit Routine Oth 11/22/19 01:45 Ordered Resuscitation Status Routine Resus Stat 11/22/19 01:42 Ordered Medication Orders Acetaminophen (Tylenol) 650 mg PO Q4H PRN PRN Reason: Pain (Mild 1-3)/fever Cyclosporine (Modified) (Neoral) 50 mg PO DAILY [facility] Enoxaparin Sodium (Lovenox) 40 mg SUBCUT DAILY [facility] Furosemide (Lasix) 20 mg PO ONETIME PRN PRN Reason: Edema Sodium Chloride (Normal Saline) 1,000 mls @ 999 mls/hr IV ASDIRECTED AKIL Last Admin: 11/22/19 00:17 Dose: 999 mls/hr Sodium Chloride (Normal Saline) 1,000 mls @ 999 mls/hr IV ASDIRECTED AKIL Last Admin: 11/22/19 01:24 Dose: 999 mls/hr Sodium Chloride (Normal Saline) 1,000 mls @ 999 mls/hr IV ASDIRECTED [facility] Promethazine HCl 6.25 mg/ (Sodium Chloride) 50.25 mls @ 200 mls/hr IV Q6H PRN PRN Reason: Nausea/Vomiting Levothyroxine Sodium (Synthroid) 88 mcg PO ACBREAKFAST [facility] Mycophenolate Mofetil (Cellcept) 500 mg PO BID AKIL Olanzapine (Zyprexa) 5 mg PO BEDTIME AK[facility] Ondansetron HCl (Zofran Odt) 4 mg PO Q6H PRN PRN Reason: Nausea able to take PO Oxycodone HCl (Oxycodone) 5 mg PO Q4H PRN PRN Reason: Pain (moderate 4-6) Rosuvastatin Calcium (Crestor) 10 mg PO DAILY AKIL - Mortality Measure Prognosis:: Good
[2019-11-22] MEDS: OLANZapine 5 MG Tab PO SCH ×2 (02:55→20:46)
[2019-11-22] MEDS: Mycophenolate Mofetil 250 MG Cap PO SCH ×2 (08:18→20:45)
[2019-11-22] MEDS: Rosuvastatin 10 MG Tab PO SCH ×2 (08:18→11:29)
[2019-11-22] MEDS: Levothyroxine 88 MCG Tab PO SCH (08:18)
[2019-11-22] MEDS: Acetaminophen 325 MG Tab PO PRN (09:38)
--- NOTE | 2019-11-22 10:03 | CR ---
CHEST: Portable11/22/2019 at 12:47 AM CLINICAL HISTORY:Fever COMPARISON:None FINDINGS: Heart is enlarged. Pulmonary vascularity is exaggerated by 0.4 level. No definite infiltrates are seen. There are atherosclerotic changes in the aorta. IMPRESSION: Myocardial megaly Less than optimal inspiration exaggerates lung markings. No definite infiltrate seen. If clinically relevant, upright two-view chest should be considered when patient's condition allows
[2019-11-22] MEDS: predniSONE 5 MG Tab PO SCH (12:20)
[2019-11-22] MEDS ORDERED: Magnesium Hydroxide 400 MG/5 ML Susp 30 ML Cup PO PRN (12:40)
[2019-11-22] MEDS: Enoxaparin 40 MG/0.4 ML Syringe SUBCUT SCH (20:45)
[2019-11-22] MEDS: Lactobacillus Rhamnosus GG (Probiotic) Cap PO SCH (20:45)
[2019-11-22] MEDS: Melatonin 3 MG Tab PO SCH (20:45)
[2019-11-22] MEDS ORDERED: Enoxaparin 30 MG/0.3 ML Syringe SUBCUT SCH (21:00)
[2019-11-23] MEDS: cefTRIAXone 1 GM in Sodium Chloride 0.9% 50 ML IV SCH (01:06)
[2019-11-23] MEDS: predniSONE 5 MG Tab PO SCH (07:12)
[2019-11-23] MEDS: Levothyroxine 88 MCG Tab PO SCH (07:12)
[2019-11-23] MEDS: Rosuvastatin 10 MG Tab PO SCH (09:50)
[2019-11-23] MEDS: Lactobacillus Rhamnosus GG (Probiotic) Cap PO SCH ×2 (09:50→20:16)
[2019-11-23] MEDS: Mycophenolate Mofetil 250 MG Cap PO SCH ×2 (09:50→20:16)
--- NOTE | 2019-11-23 10:59 | PCM.PN ---
- General Info Date of Service: 11/23/19 Subjective Update: There were no acute events overnight. She has not had any fevers. Vital signs have been stable. No significant agitation. She does not complain of shortness of breath, abdominal pain or nausea. She feels a little tired. Urine culture growing a gram-negative fay with identification pending. Functional Status: Reports: Pain Controlled, Tolerating Diet - Review of Systems General: Denies: Fever - Patient Data Vitals - Most Recent: Last Vital Signs Temp 35.6 C L 11/23/19 10:27 Pulse 51 L 11/23/19 10:27 Resp 16 11/23/19 10:27 BP 118/54 L 11/23/19 10:27 Pulse Ox 96 11/23/19 10:27 Weight - Most Recent: 60.781 kg I&O - Last 24 Hours: Intake & Output 11/22/19 11/23/19 11/23/19 22:59 06:59 14:59 Intake Total 988 520 Balance 988 520 Lab Results Last 24 Hours: Laboratory Results - last 24 hr 11/23/19 11/23/19 Range/Units 05:42 05:42 WBC 8.1 (4.5-11.0) K/uL RBC 3.26 L (3.30-5.50) M/uL Hgb 9.9 L (12.0-15.0) g/dL Hct 33.4 L (36.0-48.0) % MCV 103 H (80-98) fL MCH 30 (27-31) pg MCHC 30 L (32-36) % Plt Count 171 (150-400) K/uL Sodium 140 (140-148) mmol/L Potassium 4.0 (3.6-5.2) mmol/L Chloride 107 (100-108) mmol/L Carbon Dioxide 24 (21-32) mmol/L Anion Gap 9.2 (5.0-14.0) mmol/L BUN 28 H (7-18) mg/dL Creatinine 1.0 (0.6-1.0) mg/dL Est Cr Clr Drug Dosing 35.52 mL/min Estimated GFR (MDRD) 53 L (>60) Glucose 201 H (74-106) mg/dL Calcium 8.1 L (8.5-10.1) mg/dL Josef Results Last 24 Hours: Microbiology 11/22/19 00:03 Urine Culture - Preliminary Urine, Bladder 11/22/19 00:35 Aerobic Blood Culture - Preliminary Blood - Venous - Iv Start Anaerobic Blood Culture - Preliminary NO GROWTH AFTER 1 DAY 11/22/19 00:30 Aerobic Blood Culture - Preliminary Blood - Arm, Left NO GROWTH AFTER 1 DAY Anaerobic Blood Culture - Preliminary NO GROWTH AFTER 1 DAY Med Orders - Current: Current Medications Acetaminophen (Tylenol) 650 mg PO Q4H PRN PRN Reason: Pain (Mild 1-3)/fever Last Admin: 11/22/19 09:38 Dose: 650 mg Cyclosporine (Modified) (Neoral) 75 mg PO DAILY [facility] Last Admin: 11/23/19 09:50 Dose: 75 mg Cyclosporine (Modified) (Neoral) 50 mg PO BEDTIME [facility] Last Admin: 11/22/19 20:45 Dose: 50 mg Enoxaparin Sodium (Lovenox) 40 mg SUBCUT BEDTIME [facility] Last Admin: 11/22/19 20:45 Dose: 40 mg Furosemide (Lasix) 20 mg PO ONETIME PRN PRN Reason: Edema Promethazine HCl 6.25 mg/ (Sodium Chloride) 50.25 mls @ 200 mls/hr IV Q6H PRN PRN Reason: Nausea/Vomiting Ceftriaxone Sodium 1 gm/ (Sodium Chloride) 50 mls @ 100 mls/hr IV Q24H [facility] Last Admin: 11/23/19 01:06 Dose: 100 mls/hr Lactobacillus Rhamnosus (Culturelle) 1 cap PO BID [facility] Last Admin: 11/23/19 09:50 Dose: 1 cap Levothyroxine Sodium (Synthroid) 88 mcg PO ACBREAKFAST [facility] Last Admin: 11/23/19 07:12 Dose: 88 mcg Magnesium Hydroxide (Milk Of Magnesia) 30 ml PO BID PRN PRN Reason: Constipation Last Admin: 11/23/19 09:50 Dose: 30 ml Melatonin (Melatonin) 9 mg PO BEDTIME [facility] Last Admin: 11/22/19 20:45 Dose: 9 mg Mycophenolate Mofetil (Cellcept) 500 mg PO BID [facility] Last Admin: 11/23/19 09:50 Dose: 500 mg Olanzapine (Zyprexa) 5 mg PO BEDTIME [facility] Last Admin: 11/22/19 20:46 Dose: 5 mg Ondansetron HCl (Zofran Odt) 4 mg PO Q6H PRN PRN Reason: Nausea able to take PO Oxycodone HCl (Oxycodone) 5 mg PO Q4H PRN PRN Reason: Pain (moderate 4-6) Last Admin: 11/22/19 02:56 Dose: 5 mg Prednisone (Prednisone) 5 mg PO WITHBREAKFAST [facility] Last Admin: 11/23/19 07:12 Dose: 5 mg Rosuvastatin Calcium (Crestor) 10 mg PO DAILY [facility] Last Admin: 11/23/19 09:50 Dose: 10 mg Discontinued Medications Acetaminophen (Tylenol) 650 mg PO ONETIME ONE Stop: 11/22/19 00:06 Last Admin: 11/22/19 00:17 Dose: 650 mg Cyclosporine (Modified) (Neoral) 50 mg PO DAILY [facility] Last Admin: 11/22/19 08:17 Dose: 50 mg Enoxaparin Sodium (Lovenox) 40 mg SUBCUT DAILY [facility] Last Admin: 11/22/19 02:54 Dose: 40 mg Sodium Chloride (Normal Saline) 1,000 mls @ 999 mls/hr IV ASDIRECTED [facility] Last Admin: 11/22/19 00:17 Dose: 999 mls/hr Ceftriaxone Sodium 1 gm/ (Sodium Chloride) 50 mls @ 100 mls/hr IV ONETIME ONE Stop: 11/22/19 01:45 Last Admin: 11/22/19 01:23 Dose: 100 mls/hr Sodium Chloride (Normal Saline) 1,000 mls @ 999 mls/hr IV ASDIRECTED [facility] Last Admin: 11/22/19 01:24 Dose: 999 mls/hr Sodium Chloride (Normal Saline) 1,000 mls @ 999 mls/hr IV ASDIRECTED [facility] Last Admin: 11/22/19 02:59 Dose: 999 mls/hr Methylprednisolone Sodium Succinate (Solu-Medrol) 40 mg IVPUSH ONETIME ONE Stop: 11/22/19 00:36 Last Admin: 11/22/19 01:15 Dose: 40 mg - Exam Quality Assessment: Supplemental Oxygen General: Alert, Oriented, Cooperative, No Acute Distress Lungs: Normal Respiratory Effort, Decreased Breath Sounds (mild left lung base) Cardiovascular: Regular Rate, Regular Rhythm GI/Abdominal Exam: Soft, No Distention Extremities: No Pedal Edema Psy/Mental Status: Alert, Normal Affect Sepsis Event Note - Evaluation Sepsis Screening Result: No Definite Risk - Focused Exam Vital Signs: Vital Signs Temp Pulse Resp BP Pulse Ox 11/23/19 10:27 35.6 C L 51 L 16 118/54 L 96 11/23/19 07:00 35.8 C L 58 L 15 129/53 L 97 11/23/19 03:10 90 L 11/23/19 03:00 34.7 C L 49 L 16 119/50 L 98 11/22/19 23:00 35.3 C L 51 L 14 132/56 L 98 Date Exam was Performed: 11/23/19 Time Exam was Performed: 13:31 - Problem List Review Problem List Initiated/Reviewed/Updated: Yes - My Orders Last 24 Hours: My Active Orders 11/22/19 10:00 predniSONE 5 mg PO WITHBREAKFAST 11/22/19 12:40 Transfer Patient (Change bed) [ADT] Routine Magnesium Hydroxide [Milk of Magnesia] 30 ml PO BID PRN 11/22/19 21:00 Lactobacillus Rhamnosus GG [Culturelle] 1 cap PO BID Melatonin 9 mg PO BEDTIME cycloSPORINE, Modified [Neoral] 50 mg PO BEDTIME 11/23/19 01:00 cefTRIAXone [Rocephin] 1 gm Sodium Chloride 0.9% [Normal Saline] 50 ml IV Q24H 11/23/19 09:00 cycloSPORINE, Modified [Neoral] 75 mg PO DAILY - Plan Plan:: ASSESSMENT AND PLAN - Acute cystitis without hematuria with sepsis-sepsis has resolved. Clinically doing well. Urine culture still pending but is growing a gram-negative fay. -Continue ceftriaxone -Follow-up culture Status post renal transplant-kidney function stable and doing well. -Continue home medications Alzheimer's disease-no behavior issues. -Melatonin at bedtime Maintenance issues - - DVT prophylaxis -mechanical - GI prophylaxis -not indicated - Nutrition -regular Disposition -I would anticipate discharge back to her assisted facility in 1 or maybe 2 days Khoa Powell M.D.
[2019-11-23] MEDS: Acetaminophen 325 MG Tab PO PRN (17:24)
[2019-11-23] MEDS: Enoxaparin 40 MG/0.4 ML Syringe SUBCUT SCH (20:16)
[2019-11-23] MEDS: Melatonin 3 MG Tab PO SCH (20:16)
[2019-11-23] MEDS: OLANZapine 5 MG Tab PO SCH (20:17)
[2019-11-24] MEDS: cefTRIAXone 1 GM in Sodium Chloride 0.9% 50 ML IV SCH (01:29)
[2019-11-24] MEDS: Acetaminophen 325 MG Tab PO PRN (05:19)
[2019-11-24] MEDS: Levothyroxine 88 MCG Tab PO SCH (07:44)
[2019-11-24] MEDS: predniSONE 5 MG Tab PO SCH (08:41)
[2019-11-24] MEDS: Rosuvastatin 10 MG Tab PO SCH (08:41)
[2019-11-24] MEDS: Mycophenolate Mofetil 250 MG Cap PO SCH (08:41)
[2019-11-24] MEDS: Lactobacillus Rhamnosus GG (Probiotic) Cap PO SCH (08:41)
[2019-11-24] MEDS ORDERED: Ciprofloxacin 500 MG Tab PO SCH (09:00)
--- NOTE | 2019-11-24 09:28 | PCM.DCSUM1 ---
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 She was admitted for management of a urinary tract infection with sepsis. Diagnosis: Stroke: No - Discharge Data Discharge Date: 11/24/19 Discharge Disposition: DC/Tfer to SNF 03 Condition: Good - Referral to Home Health Primary Care Physician: PCP None - Discharge Diagnosis/Problem(s) (1) Acute cystitis without hematuria SNOMED Code(s): 28249033 ICD Code: N30.00 - ACUTE CYSTITIS WITHOUT HEMATURIA Status: Acute Current Visit: Yes (2) Sepsis SNOMED Code(s): 77881897 ICD Code: A41.9 - SEPSIS, UNSPECIFIED ORGANISM Status: Acute Current Visit: Yes Onset Date: ~11/21/19 Problem Details: POA, Patient receiving fluids and rocephin in ER, sepsis protocol started, lovenox started, patient will be sent to ICU for closer monitoring. Qualifiers: Sepsis type: Pseudomonas Sepsis acute organ dysfunction status: without acute organ dysfunction Qualified Code(s): A41.52 - Sepsis due to Pseudomonas (3) Hx of kidney transplant Status: Chronic Current Visit: No (4) Alzheimers disease SNOMED Code(s): 66504960 ICD Code: G30.9 - ALZHEIMER'S DISEASE, UNSPECIFIED; F02.80 - DEMENTIA IN OTH DISEASES CLASSD ELSWHR W/O BEHAVRL DISTURB Status: Chronic Current Visit: No Qualifiers: Alzheimer's disease onset: late-onset Dementia behavioral disturbance: without behavioral disturbance Qualified Code(s): G30.1 - Alzheimer's disease with late onset; F02.80 - Dementia in other diseases classified elsewhere without behavioral disturbance (5) CKD (chronic kidney disease), stage III SNOMED Code(s): 302848388 ICD Code: N18.3 - CHRONIC KIDNEY DISEASE, STAGE 3 (MODERATE) Status: Chronic Current Visit: Yes - Patient Summary/Data Hospital Course: Shanon presented to the emergency room with fever and confusion. Work-up in the emergency room was concerning for a urinary tract infection with sepsis. She was borderline tachycardic, very confused and had a mildly elevated lactic acid level. She received ceftriaxone and IV fluids. Urine and blood cultures were obtained. She was admitted to the intensive care unit for further management. By the morning after admission her sepsis had resolved. Her heart rate and blood pressure were both normal and stable. Her delirium seem to have resolved by the morning after admission. We were able to convert her IV to a saline lock. We did continue the ceftriaxone. Throughout the next day there were no acute issues and she was feeling better. Strength is been improving. There is been no confusion. There is been no fevers. On the morning of planned discharge the urine culture returned with Pseudomonas. Antibiotics were transitioned to oral ciprofloxacin at this point. She has been afebrile. She has had a bowel movement. She has not had any fevers or confusion. I believe she is safe for discharge back to the [facility] at this point. My plan is for 5 days total of antibiotics with the Pseudomonas discovered of the urine culture. No other medication changes were made. - Patient Instructions Diet: Regular Diet as Tolerated Activity: As Tolerated Showering/Bathing: May Shower Notify Provider of: Fever, Increased Pain Other/Special Instructions: 1. You were in the hospital for management of a urinary tract infection caused by a bacteria called Pseudomonas. Your condition is improving with antibiotic therapy. I do recommend ongoing antibiotic therapy. Please take ciprofloxacin 250 mg twice daily for 9 more doses. Your first dose outside of the hospital will be due tonight. 2. Continue your usual home medications as previously prescribed. 3. Continue usual therapies at the [facility]. 4. Resume previously scheduled routine labs. - Discharge Plan *PRESCRIPTION DRUG MONITORING PROGRAM REVIEWED*: Not Applicable *COPY OF PRESCRIPTION DRUG MONITORING REPORT IN PATIENT SETH: Not Applicable Prescriptions/Med Rec: Ciprofloxacin HCl 250 mg PO BID #9 tablet Home Medications: Home Meds Acetaminophen 650 mg PO Q6H PRN 07/12/19 [History] Benzonatate 200 mg PO TID PRN 07/12/19 [History] Calcium Carbonate 1,000 mg PO TID PRN 07/12/19 [History] Cholecalciferol (Vitamin D3) [Vitamin D3] 2,000 unit PO DAILY 07/12/19 [History] Furosemide [Lasix] 10 mg PO DAILY 07/12/19 [History] Levothyroxine [Synthroid] 88 mcg PO ACBREAKFAST 07/12/19 [History] Multivitamin [Multi-Vitamin Daily] 1 each PO DAILY 07/12/19 [History] Mycophenolate [Myfortic] 720 mg PO BID 07/12/19 [History] OLANZapine [Olanzapine] 5 mg PO BEDTIME 07/12/19 [History] Rosuvastatin [Crestor] 20 mg PO DAILY 07/12/19 [History] cycloSPORINE, Modified [Cyclosporine Modified] 75 mg PO DAILY 07/12/19 [History] predniSONE [Prednisone] 4 mg PO DAILY 07/12/19 [History] Calcium Carbonate [Calcium] 2 tab PO DAILY 11/22/19 [History] Potassium Chloride [Klor-Con] 1 dose PO BID 11/22/19 [History] Propylene Glycol/PEG 400/Pf [Systane Ultra 0.4-0.3% Eye Drp] 1 drop EYEBOTH QID 11/22/19 [History] Saliva Substitute Combo No.9 [Biotene] 1 dose PO ASDIRECTED PRN 11/22/19 [ History] cycloSPORINE [Cyclosporine] 50 mg PO DAILY 11/22/19 [History] polyethylene glycoL 3350 [Miralax] 1 dose PO ASDIRECTED PRN 11/22/19 [History] Ciprofloxacin HCl 250 mg PO BID #9 tablet 11/24/19 [Rx] Oxygen Therapy Mode: Room Air Patient Handouts: Urinary Tract Infection, Adult, [id number], Ciprofloxacin tablets Referrals: Avrey Lares MD [Physician] - (Follow-up as needed after the hospital stay ) - Discharge Summary/Plan Comment DC Time >30 min.: No - Patient Data Vitals - Most Recent: Last Vital Signs Temp 35.6 C L 11/24/19 07:00 Pulse 47 L 11/24/19 07:00 Resp 18 11/24/19 07:00 BP 137/57 L 11/24/19 07:00 Pulse Ox 94 L 11/24/19 07:00 Weight - Most Recent: 60.781 kg I&O - Last 24 hours: Intake & Output 11/23/19 11/24/19 11/24/19 22:59 06:59 14:59 Intake Total 650 50 Balance 650 50 ZURDO Results - Last 24 hrs: Microbiology 11/22/19 00:03 Urine Culture - Final Urine, Bladder Pseudomonas Aeruginosa 11/22/19 00:30 Aerobic Blood Culture - Preliminary Blood - Arm, Left NO GROWTH AFTER 2 DAYS Anaerobic Blood Culture - Preliminary NO GROWTH AFTER 2 DAYS 11/22/19 00:35 Aerobic Blood Culture - Preliminary Blood - Venous - Iv Start Anaerobic Blood Culture - Preliminary NO GROWTH AFTER 2 DAYS Med Orders - Current: Current Medications Acetaminophen (Tylenol) 650 mg PO Q4H PRN PRN Reason: Pain (Mild 1-3)/fever Last Admin: 11/24/19 05:19 Dose: 650 mg Ciprofloxacin (Ciprofloxacin Hcl) [address] [facility] Cyclosporine (Modified) (Neoral) [address] [facility] Last Admin: 11/24/19 08:41 Dose: 75 mg Cyclosporine (Modified) (Neoral) [address] [facility] Last Admin: 11/23/19 20:17 Dose: 50 mg Enoxaparin Sodium (Lovenox) [address] [facility] Last Admin: 11/23/19 20:16 Dose: 40 mg Furosemide (Lasix) 20 mg PO ONETIME PRN PRN Reason: Edema Promethazine HCl 6.25 mg/ (Sodium Chloride) 50.25 mls @ 200 mls/hr IV Q6H PRN PRN Reason: Nausea/Vomiting Lactobacillus Rhamnosus (Culturelle) [address] [facility] Last Admin: 11/24/19 08:41 Dose: 1 cap Levothyroxine Sodium (Synthroid) [address] [facility] Last Admin: 11/24/19 07:44 Dose: 88 mcg Magnesium Hydroxide (Milk Of Magnesia) 30 ml PO BID PRN PRN Reason: Constipation Last Admin: 11/23/19 09:50 Dose: 30 ml Melatonin (Melatonin) [address] [facility] Last Admin: 11/23/19 20:16 Dose: 9 mg Mycophenolate Mofetil (Cellcept) [address] [facility] Last Admin: 11/24/19 08:41 Dose: 500 mg Olanzapine (Zyprexa) [address] [facility] Last Admin: 11/23/19 20:17 Dose: 5 mg Ondansetron HCl (Zofran Odt) 4 mg PO Q6H PRN PRN Reason: Nausea able to take PO Oxycodone HCl (Oxycodone) 5 mg PO Q4H PRN PRN Reason: Pain (moderate 4-6) Last Admin: 11/22/19 02:56 Dose: 5 mg Prednisone (Prednisone) [address] [facility] Last Admin: 11/24/19 08:41 Dose: 5 mg Rosuvastatin Calcium (Crestor) [address] [facility] Last Admin: 11/24/19 08:41 Dose: 10 mg Discontinued Medications Acetaminophen (Tylenol) 650 mg PO ONETIME ONE Stop: 11/22/19 00:06 Last Admin: 11/22/19 00:17 Dose: 650 mg Cyclosporine (Modified) (Neoral) [address] [facility] Last Admin: 11/22/19 08:17 Dose: 50 mg Enoxaparin Sodium (Lovenox) [address] [facility] Last Admin: 11/22/19 02:54 Dose: 40 mg Sodium Chloride (Normal Saline) 1,000 mls @ 999 mls/hr IV ASDIRECTED [facility] Last Admin: 11/22/19 00:17 Dose: 999 mls/hr Ceftriaxone Sodium 1 gm/ (Sodium Chloride) 50 mls @ 100 mls/hr IV ONETIME ONE Stop: 11/22/19 01:45 Last Admin: 11/22/19 01:23 Dose: 100 mls/hr Sodium Chloride (Normal Saline) 1,000 mls @ 999 mls/hr IV ASDIRECTED [facility] Last Admin: 11/22/19 01:24 Dose: 999 mls/hr Sodium Chloride (Normal Saline) 1,000 mls @ 999 mls/hr IV ASDIRECTED [facility] Last Admin: 11/22/19 02:59 Dose: 999 mls/hr Ceftriaxone Sodium 1 gm/ (Sodium Chloride) 50 mls @ 100 mls/hr IV Q24H [facility] Last Admin: 11/24/19 01:29 Dose: 100 mls/hr Methylprednisolone Sodium Succinate (Solu-Medrol) 40 mg IVPUSH ONETIME ONE Stop: 11/22/19 00:36 Last Admin: 11/22/19 01:15 Dose: 40 mg - Exam Quality Assessment: Denies: Supplemental Oxygen General: Reports: Alert, Cooperative, No Acute Distress Lungs: Reports: Normal Respiratory Effort Cardiovascular: Reports: Regular Rate, Regular Rhythm GI/Abdominal Exam: Soft, No Distention Extremities: No Pedal Edema Psy/Mental Status: Reports: Alert, Normal Affect
== END 2019-11-24 11:04 | DRG 872 ==
LOC: JP.ED 00:01 → JP.ICU 01:42 → JP.MS 15:34
PROVIDERS: ADMIT Family Medicine; ATTEND Internal Medicine
DX: A41.9 Sepsis, unspecified organism (principal); N30.01 Acute cystitis with hematuria; A41.52 Sepsis due to Pseudomonas; I10 Essential (primary) hypertension; E11.9 Type 2 diabetes mellitus without complications; N30.00 Acute cystitis without hematuria; G30.9 Alzheimer's disease, unspecified; Z94.0 Kidney transplant status; F31.9 Bipolar disorder, unspecified; I12.9 Hypertensive chronic kidney disease with stage 1 through stage 4 chronic kidney disease, or unspecified chronic kidney disease; N18.3 Chronic kidney disease, stage 3 (moderate); E11.22 Type 2 diabetes mellitus with diabetic chronic kidney disease; E86.0 Dehydration; G30.1 Alzheimer's disease with late onset; F02.80 Dementia in other diseases classified elsewhere, unspecified severity, without behavioral disturbance, psychotic disturbance, mood disturbance, and anxiety; E78.00 Pure hypercholesterolemia, unspecified; Z91.09 Other allergy status, other than to drugs and biological substances; Z91.040 Latex allergy status; Z88.7 Allergy status to serum and vaccine; Z88.8 Allergy status to other drugs, medicaments and biological substances; Z79.890 Hormone replacement therapy; Z79.899 Other long term (current) drug therapy; Z90.49 Acquired absence of other specified parts of digestive tract; Z90.710 Acquired absence of both cervix and uterus
CPT/HCPCS: 36415; 71045; 71045-26; 80048; 80053; 81001; 83605; 85025; 85027; 87040; 87077; 87086; 87088; 87186; 96361; 96365; 96375; 96376; 99283; 99285-25; A9270-GY; J0696; J1650; J2920; J7030; J7050; J7515